=== PATIENT | female | born 1960 | race Caucasian/White ===

== ENCOUNTER → 2016-07-20 | Outpatient (CLI) | payer MEDICARE, BC ==
--- NOTE | 2016-07-20 14:47 | MAM ---
History: Bilateral breast tenderness. DATE OF SERVICE: 07/20/2016 Services provided: Bilateral full field digital diagnostic mammography. CAD, the images were reviewed with R2 computer aided detection. FINDINGS: Routine and true lateral views are obtained. Scattered glandular pattern. No dominant mass, architectural distortion or clustered microcalcification. No prior study for comparison. IMPRESSION: Benign exam. Recommendation: Routine annual mammography. Mastodynia recommendations are given. BIRAD CATEGORY: 2 BENIGN Electronically signed by: Nery Merino MD 07/20/2016 2:46 PM CDT
== END ==
LOC: MAMMO 14:12
PROVIDERS: ATTEND General Practice
DX: N64.4 Mastodynia (principal)

== ENCOUNTER → 2017-01-08 | Outpatient (CLI) | payer MEDICARE, BC ==
--- NOTE | 2017-01-09 10:51 | RAD ---
Procedure: XR SHOULDER 2 OR MORE VIEWS Exam Date: 01/08/2017 2:52 PM CDT Ordering Provider: JAZMIN NAIR Clinical Indication: PAIN IN RIGHT SHOULDER Comparison: None FINDINGS: There is no fracture or dislocation. The subacromial space is preserved. The acromioclavicular joint has a normal appearance. The glenohumeral joint has a normal appearance. No lytic or sclerotic lesions. IMPRESSION: 1. Nonacute exam of the right shoulder. Electronically signed by: Spencer Vega MD 01/09/2017 10:50 AM CDT
--- NOTE | 2017-01-09 10:52 | RAD ---
Procedure: XR PELVIS 1-2 VIEWS Exam Date: 01/08/2017 2:52 PM CDT Ordering Provider: JAZMIN NAIR Clinical Indication: PAIN IN RT HIP Comparison: None FINDINGS: There is no fracture or dislocation. Articular surface of each hip has a normal appearance. The sacroiliac joints have a normal appearance bilaterally. The pubic symphysis is normal. There are no lytic or sclerotic lesions. There are no suspicious calcifications. Impression: 1. Negative exam of the pelvis and each hip. Electronically signed by: Spencer Vega MD 01/09/2017 10:51 AM CDT
--- NOTE | 2017-01-09 11:04 | RAD ---
Procedure: XR KNEE 4 OR MORE VIEWS Exam Date: 01/08/2017 2:52 PM CDT Ordering Provider: JAZMIN NAIR Clinical Indication: Right knee pain Comparison: None Findings: No fractures or subluxations. No joint effusion seen. No subcutaneous gas or radiopaque foreign body. No lytic or sclerotic lesions identified. No significant degenerative change. Impression: Unremarkable right knee series. Electronically signed by: Spencer Vega MD 01/09/2017 11:03 AM CDT
== END | disposition home or self-care (01) ==
LOC: RAD 14:37
PROVIDERS: ATTEND Orthopaedic Surgery
DX: M25.561 Pain in right knee (principal); M25.551 Pain in right hip; M25.511 Pain in right shoulder

== ENCOUNTER → 2017-01-22 | Outpatient (CLI) | payer MEDICARE, BC ==
--- NOTE | 2017-01-23 10:58 | MRI ---
Study: MRI of the Right Shoulder. Indication: ROTATOR CUFF SYNDROME Technique: Multiplanar, multi sequence MRI of the right shoulder was obtained without intravenous contrast. Comparison: None. Findings: Mild AC joint osteoarthritis. Type I acromion with mild lateral downsloping. Small-volume subacromial/subdeltoid bursal fluid. Supraspinatus and infraspinatus tendinosis with bursal surface fraying of both tendons. Subscapularis and teres minor tendons intact. Rotator cuff musculature normal without atrophy, fatty infiltration, or intramuscular edema. Long head biceps tendon intact. Undersurface tearing throughout the base of the superior labrum and posterior labrum. Minimal glenohumeral joint osteoarthritis with a tiny joint effusion. No acute fracture. Impression: Supraspinatus and infraspinatus tendinosis and bursal surface fraying. Undersurface tearing superior labrum and posterior labrum. Minimal glenohumeral joint osteoarthritis. Mild AC joint osteoarthritis. Electronically signed by: Joshua Donis MD 01/23/2017 10:57 AM CDT
--- NOTE | 2017-01-23 11:14 | MRI ---
Study: MRI of the Right Knee. Indication: OSTEOARTHRITIS Technique: Multiplanar, multi sequence MRI of the right knee was obtained without intravenous contrast. Comparison: None. Findings: ACL, PCL, and lateral collateral ligament complex intact. MCL is lax and bowed indicating sequela of a remote MCL sprain. No acute tear. Degenerative signal posterior horn medial meniscus with 2 mm extrusion of the body. No high grade tear. Patchy grade 2/3 chondrosis throughout the medial compartment. Degenerative signal and attenuation posterior root attachment lateral meniscus. A component of radial tearing is suspected without transection. Body extruded by 3 mm with free edge fraying. Patchy grade 3 chondrosis throughout the central to the lateral weightbearing margins of the lateral compartment. Patellofemoral extensor mechanism intact. Irregular grade 3 and mild grade 4 chondral fibrillation of the patellar apex extending into the medial and lateral facets with mild subchondral marrow change. Subtle grade 3/4 chondrosis inferior most margin midline femoral trochlea. Moderate size knee effusion. Moderate size multiloculated Gutierrez cyst. No acute fracture. Impression: Degenerative signal medial meniscus without tear. Suspected component of radial tearing posterior root attachment lateral meniscus with free edge fraying and slight extrusion of the body. Remote MCL sprain. 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 Moderate size knee effusion. Electronically signed by: Joshua Donis MD 01/23/2017 11:13 AM CDT
== END | disposition home or self-care (01) ==
LOC: MRI 15:00
PROVIDERS: ATTEND Orthopaedic Surgery
DX: M17.11 Unilateral primary osteoarthritis, right knee (principal); M75.101 Unspecified rotator cuff tear or rupture of right shoulder, not specified as traumatic

== ENCOUNTER → 2017-02-08 | Outpatient (CLI) | payer MEDICARE, BC | LOC: SL 20:30 | PROVIDERS: ATTEND General Practice | DX: G47.10 Hypersomnia, unspecified (principal); F51.09 Other insomnia not due to a substance or known physiological condition ==

== ENCOUNTER → 2017-02-23 | Outpatient (CLI) | payer MEDICARE, BC | END | disposition home or self-care (01) | LOC: SL 20:11 | PROVIDERS: ATTEND General Practice | DX: G47.10 Hypersomnia, unspecified (principal) ==

== ENCOUNTER → 2018-09-18 | Outpatient (CLI) | payer OTHER | LOC: LAB.O 11:52 | PROVIDERS: ATTEND Internal Medicine | DX: M79.7 Fibromyalgia (principal); E55.9 Vitamin D deficiency, unspecified; M81.0 Age-related osteoporosis without current pathological fracture; R53.83 Other fatigue ==

== ENCOUNTER → 2018-10-11 | Outpatient (CLI) | payer OTHER ==
--- NOTE | 2018-10-14 12:11 | MAM ---
EXAM DESCRIPTION: 3D Screening BILATERAL : Digital Mammography. CLINICAL HISTORY: 58 years Female ANNUAL SCREENING . Soreness left breast laterally. No personal history of breast cancer. Mother with ovarian cancer. Remote family history ovarian cancer. Childbirth. Postmenopausal 30+ years. Currently on HRT. Prior benign right breast cyst aspiration and biopsy Lifetime risk of developing breast cancer (Tyrer-Cuzick model)(%): 15.1. COMPARISON: Bilateral diagnostic 2-D breast mammogram 07/20/2016. TECHNIQUE: Bilateral CC and MLO projection full-field images, digital tomosynthesis mammographic technique. Bilateral digital 2-D full-field MLO images. CAD not available for tomosynthesis or 2-D images. FINDINGS: The breast parenchymal density pattern is: Scattered areas of fibroglandular density. No skin thickening or nipple retraction. Bilateral solitary microcalcifications. Bilateral vascular calcifications. No new focal, stellate mass or density, focal asymmetry , and no suspicious microcalcifications bilaterally. Stable mammograms compared to prior study. Taking into account, differences in mammographic technique. IMPRESSION: Benign exam. BIRAD CATEGORY: 2 BENIGN FINDINGS. RECOMMENDATIONS: FOLLOW UP: Routine digital bilateral mammographic screening, one year interval from September 2018. Written communication explaining the IMPRESSION and follow-up, will be mailed to the patient and referring health care provider. According to the [employer], yearly mammograms are recommended starting at age 40 and continuing as long as a woman is in good health. Any breast change noted on a breast self-exam should be reported promptly to the patient's healthcare provider. Breast MRI is recommended for women with an approximately 20-25% or greater lifetime risk of breast cancer, including women with a strong family history of breast or ovarian cancer and women who have been treated for Hodgkin's disease. A negative mammographic report should not delay tissue diagnosis in patients with significant clinical history or physical findings. Extremely dense breast tissue limits the sensitivity of digital mammography. Electronically signed by: Richardson Zarate MD 10/14/2018 12:08 PM CDT
== END ==
LOC: MAMMO 11:21
PROVIDERS: ATTEND Obstetrics & Gynecology
DX: Z12.31 Encounter for screening mammogram for malignant neoplasm of breast (principal)